=== PATIENT | male | born 1955 | race Caucasian/White ===

== ENCOUNTER 2018-07-18 16:25 | Inpatient (IN) | payer MEDICARE, OTHER ==
[~2018-07-18] VITALS: Ht 170.2 cm; Wt 54.6 kg
[2018-07-18 17:00] LABS: BASOPHILS % (AUTO) 0 % (0-1); EOSINOPHILS # (AUTO) 0.3 X10'3 (0-0.9); EOSINOPHILS % (AUTO) 1.3 % (0-6); HEMATOCRIT 35.8 % (42.0-52.0); HEMOGLOBIN 12.1 g/dl (14.0-17.9); LYMPHOCYTES # (AUTO) 0.7 X10'3 (1.1-4.8); LYMPHOCYTES % (AUTO) 3.1 % (21-51); MEAN CORPUSCULAR HEMOGLOBIN 31.7 PG (27.0-31.0); MEAN CORPUSCULAR HGB CONC 33.8 % (33.0-36.5); MEAN CORPUSCULAR VOLUME 93.7 FL (78-98); MEAN PLATELET VOLUME 7.8 FL (7.4-10.4); MONOCYTES # (AUTO) 1.7 X10'3 (0-0.9); MONOCYTES % (AUTO) 7.6 % (2-12); NEUTROPHILS # (AUTO) 20.1 X10'3 (1.8-7.7); PLATELET COUNT 216 X10'3 (140-440); RED BLOOD COUNT 3.82 X10'6 (4.70-6.10); RED CELL DISTRIBUTION WIDTH 15.3 % (11.5-14.5); WHITE BLOOD COUNT 22.9 X10'3 (4.5-11.0)
[2018-07-18 17:10] LABS: INR 1.3 INR; PARTIAL THROMBOPLASTIN TIME 32 SECONDS (22-32); PROTHROMBIN TIME 13.3 SECONDS (9.0-12.0)
[2018-07-18 18:57] LABS: CLARITY,URINE CLEAR (Clear); COLOR,URINE YELLOW (Yellow); GLUCOSE, URINE NEGATIVE (Neg); KETONES,URINE NEGATIVE (Neg); LEUKOCYTE ESTERASE ,URINE NEGATIVE (Neg); NITRITES, URINE NEGATIVE (Neg); OCCULT BLOOD,URINE NEGATIVE (Neg); PROTEIN,URINE NEGATIVE (Neg); UROBILINOGEN,URINE 0.2 E.U/dL (0.2-1.0)
[2018-07-18 19:02] LABS: UA COLLECTION TYPE CLN CATCH MIDSTREAM
[2018-07-18] MEDS ORDERED: normal saline 1000ML IV soln IVB STA (19:59)
[2018-07-18] MEDS ORDERED: vancomycin/NS 1 GM ADD-VANTAGE 250 ML IV ONE (20:00)
[2018-07-18 20:15] LABS: ALANINE AMINOTRANSFERASE 39 U/L (12-78); ALBUMIN 3.3 G/DL (3.4-5.0); ALBUMIN/GLOBULIN RATIO 0.8 (1.1-1.5); ALKALINE PHOSPHATASE 24 IU/L (46-116); ANION GAP 10 (8-16); ASPARTATE AMINO TRANSFERASE 28 U/L (10-37); BILIRUBIN,TOTAL 0.5 MG/DL (0.1-1.0); BLOOD UREA NITROGEN 22 MG/DL (7-18); BUN/CREATININE RATIO 18.5 (5.4-32.0); CALCIUM 9.3 MG/DL (8.5-10.1); CHLORIDE 96 MMOL/L (99-107); CREATININE 1.19 MG/DL (0.60-1.10); GLUCOSE 115 MG/DL (70-104); POTASSIUM 3.5 MMOL/L (3.5-5.1); SODIUM 132 MMOL/L (135-145); TOTAL CARBON DIOXIDE 26.5 MMOL/L (24-32); TOTAL PROTEIN 7.4 G/DL (6.4-8.2); eGFR 62 ML/MIN
[2018-07-18] MEDS ORDERED: HYDROmorphone 1 mg/ml syringe IV ONE (20:15)
[2018-07-18] MEDS ORDERED: magnesium hydroxide 30ml (MOM) UD suspension PO PRN (20:45)
[2018-07-18] MEDS ORDERED: mag hydrox/Alum hydrox/simeth 30ml oral suspension PO PRN (20:45)
[2018-07-18] MEDS ORDERED: ondansetron/PF 4mg/2ml inj IV PRN (20:45)
[2018-07-18] MEDS ORDERED: acetaminophen 325mg tablet PO PRN (20:45)
[2018-07-18] MEDS ORDERED: HYDROmorphone 1 mg/ml syringe IV PRN ×2 (20:45→20:55)
[2018-07-18] MEDS ORDERED: TIZA2CAP PO (20:51)
[2018-07-18] MEDS ORDERED: VAL5T PO (20:51)
[2018-07-18] MEDS ORDERED: HYDR-565 PO (20:52)
[2018-07-18] MEDS ORDERED: QUET-1 PO (20:52)
[2018-07-18] MEDS ORDERED: TRAZ-218 PO (20:52)
[2018-07-18] MEDS: normal saline 1000ml 1,000 ML IV SCH (21:27)
[2018-07-18] MEDS: quetiapine 100mg tablet PO SCH (22:40)
[2018-07-18] MEDS: traZODone 50mg tablet PO SCH (22:40)
[2018-07-19 06:00] VITALS: BP 127/70
[2018-07-19 06:22] LABS: ALANINE AMINOTRANSFERASE 35 U/L (12-78); ALBUMIN 2.4 G/DL (3.4-5.0); ALBUMIN/GLOBULIN RATIO 0.7 (1.1-1.5); ALKALINE PHOSPHATASE 17 IU/L (46-116); ANION GAP 8 (8-16); ASPARTATE AMINO TRANSFERASE 20 U/L (10-37); BILIRUBIN,TOTAL 0.3 MG/DL (0.1-1.0); BLOOD UREA NITROGEN 17 MG/DL (7-18); BUN/CREATININE RATIO 16.7 (5.4-32.0); CALCIUM 7.9 MG/DL (8.5-10.1); CHLORIDE 102 MMOL/L (99-107); CREATININE 1.02 MG/DL (0.60-1.10); GLUCOSE 124 MG/DL (70-104); POTASSIUM 3.5 MMOL/L (3.5-5.1); SODIUM 134 MMOL/L (135-145); TOTAL CARBON DIOXIDE 24.5 MMOL/L (24-32); TOTAL PROTEIN 5.9 G/DL (6.4-8.2); eGFR 74 ML/MIN
[2018-07-19] MEDS: normal saline 1000ml 1,000 ML IV SCH ×2 (06:45→19:43)
[2018-07-19 06:54] LABS: BASOPHILS # (AUTO) 0.1 X10'3 (0-0.2); BASOPHILS % (AUTO) 0.5 % (0-1); EOSINOPHILS % (AUTO) 0 % (0-6); HEMATOCRIT 32.2 % (42.0-52.0); HEMOGLOBIN 10.8 g/dl (14.0-17.9); LYMPHOCYTES # (AUTO) 0.8 X10'3 (1.1-4.8); LYMPHOCYTES % (AUTO) 4.4 % (21-51); MEAN CORPUSCULAR HEMOGLOBIN 31.2 PG (27.0-31.0); MEAN CORPUSCULAR HGB CONC 33.4 % (33.0-36.5); MEAN CORPUSCULAR VOLUME 93.2 FL (78-98); MEAN PLATELET VOLUME 8.9 FL (7.4-10.4); MONOCYTES # (AUTO) 1.4 X10'3 (0-0.9); MONOCYTES % (AUTO) 7.9 % (2-12); NEUTROPHILS # (AUTO) 15.5 X10'3 (1.8-7.7); NEUTROPHILS % (AUTO) 87.2 % (42-75); PLATELET COUNT 155 X10'3 (140-440); RED BLOOD COUNT 3.45 X10'6 (4.70-6.10); RED CELL DISTRIBUTION WIDTH 15.1 % (11.5-14.5); WHITE BLOOD COUNT 17.8 X10'3 (4.5-11.0)
[2018-07-19] MEDS ORDERED: pneumococcal 23-VAL P-sac vacc 25 mcg/0.5ml vial IMVAC ONE (07:00)
[2018-07-19] MEDS: HYDROcodone/acetaminophen 10/325mg tab PO PRN ×3 (07:43→19:43)
[2018-07-19] MEDS: heparin, porcine 5000 units/ml vial SQ SCH ×2 (07:44→19:43)
[2018-07-19] MEDS: diazepam 5mg tablet PO SCH ×2 (09:57→19:43)
[2018-07-19 10:00] VITALS: BP 116/58
[2018-07-19] MEDS: piperacillin/tazo 3.375gm/50ml 50 ML IV SCH ×2 (14:00→19:43)
[2018-07-19] MEDS: VANCOMYCIN 750MG IV in NS 250 ML IV SCH (14:03)
[2018-07-19 16:35] LABS: URINE AMPHETAMINE SCREEN POSITIVE (Neg); URINE BARBITUATE SCREEN NEGATIVE (Neg); URINE BENZODIAZEPINES SCREEN POSITIVE (Neg); URINE CANNABINOID SCREEN NEGATIVE (Neg); URINE COCAINE SCREEN NEGATIVE (Neg); URINE METHADONE SCREEN NEGATIVE (Neg); URINE OPIATE SCREEN POSITIVE (Neg); URINE PHENCYCLIDINE SCREEN NEGATIVE (Neg)
[2018-07-19 18:00] VITALS: BP 118/63
[2018-07-19] MEDS: traZODone 50mg tablet PO SCH (19:43)
[2018-07-19] MEDS: quetiapine 100mg tablet PO SCH (19:43)
[2018-07-19] MEDS ORDERED: vancomycin/NS 1 GM ADD-VANTAGE 250 ML IV SCH (20:00)
[2018-07-19 22:00] VITALS: BP 133/78
[2018-07-20] MEDS: piperacillin/tazo 3.375gm/50ml 50 ML IV SCH ×4 (01:48→20:14)
[2018-07-20] MEDS: VANCOMYCIN 750MG IV in NS 250 ML IV SCH ×2 (01:48→16:20)
[2018-07-20] MEDS: normal saline 1000ml 1,000 ML IV SCH ×3 (02:45→22:45)
[2018-07-20] MEDS: HYDROcodone/acetaminophen 10/325mg tab PO PRN ×2 (04:42→15:37)
[2018-07-20 05:00] VITALS: BP 137/82
[2018-07-20 05:26] LABS: BASOPHILS % (AUTO) 0.1 % (0-1); EOSINOPHILS # (AUTO) 0.3 X10'3 (0-0.9); EOSINOPHILS % (AUTO) 2.1 % (0-6); HEMATOCRIT 30.6 % (42.0-52.0); HEMOGLOBIN 10.4 g/dl (14.0-17.9); LYMPHOCYTES # (AUTO) 1.1 X10'3 (1.1-4.8); LYMPHOCYTES % (AUTO) 9.4 % (21-51); MEAN CORPUSCULAR HEMOGLOBIN 31.7 PG (27.0-31.0); MEAN CORPUSCULAR VOLUME 93.1 FL (78-98); MEAN PLATELET VOLUME 8.4 FL (7.4-10.4); NEUTROPHILS # (AUTO) 9.8 X10'3 (1.8-7.7); NEUTROPHILS % (AUTO) 80.4 % (42-75); PLATELET COUNT 158 X10'3 (140-440); RED BLOOD COUNT 3.29 X10'6 (4.70-6.10); RED CELL DISTRIBUTION WIDTH 14.7 % (11.5-14.5); WHITE BLOOD COUNT 12.2 X10'3 (4.5-11.0)
[2018-07-20 05:38] LABS: ALANINE AMINOTRANSFERASE 25 U/L (12-78); ALBUMIN 2.1 G/DL (3.4-5.0); ALBUMIN/GLOBULIN RATIO 0.6 (1.1-1.5); ALKALINE PHOSPHATASE 10 IU/L (46-116); ANION GAP 8 (8-16); ASPARTATE AMINO TRANSFERASE 23 U/L (10-37); BILIRUBIN,TOTAL 0.3 MG/DL (0.1-1.0); BLOOD UREA NITROGEN 16 MG/DL (7-18); CHLORIDE 104 MMOL/L (99-107); CREATININE 1.07 MG/DL (0.60-1.10); GLUCOSE 90 MG/DL (70-104); POTASSIUM 3.7 MMOL/L (3.5-5.1); SODIUM 136 MMOL/L (135-145); TOTAL CARBON DIOXIDE 23.9 MMOL/L (24-32); TOTAL PROTEIN 5.5 G/DL (6.4-8.2); eGFR 70 ML/MIN
[2018-07-20] MEDS: diazepam 5mg tablet PO SCH ×2 (08:08→20:15)
[2018-07-20] MEDS: heparin, porcine 5000 units/ml vial SQ SCH ×2 (08:08→20:15)
[2018-07-20 10:00] VITALS: BP 148/84
[2018-07-20 18:00] VITALS: BP 146/86
[2018-07-20] MEDS: quetiapine 100mg tablet PO SCH (20:15)
[2018-07-20] MEDS: traZODone 50mg tablet PO SCH (20:15)
[2018-07-20 22:00] VITALS: BP 124/58
[2018-07-21] MEDS ORDERED: VANCOMYCIN LEVEL IV ONE (01:30)
[2018-07-21 02:13] LABS: ALANINE AMINOTRANSFERASE 33 U/L (12-78); ALBUMIN/GLOBULIN RATIO 0.6 (1.1-1.5); ALKALINE PHOSPHATASE 18 IU/L (46-116); ANION GAP 4 (8-16); ASPARTATE AMINO TRANSFERASE 21 U/L (10-37); BASOPHILS % (AUTO) 0 % (0-1); BILIRUBIN,TOTAL 0.3 MG/DL (0.1-1.0); BLOOD UREA NITROGEN 14 MG/DL (7-18); CALCIUM 8.2 MG/DL (8.5-10.1); CHLORIDE 104 MMOL/L (99-107); CREATININE 1.08 MG/DL (0.60-1.10); EOSINOPHILS # (AUTO) 0.1 X10'3 (0-0.9); GLUCOSE 102 MG/DL (70-104); HEMATOCRIT 28.9 % (42.0-52.0); HEMOGLOBIN 9.5 g/dl (14.0-17.9); LYMPHOCYTES # (AUTO) 0.8 X10'3 (1.1-4.8); LYMPHOCYTES % (AUTO) 11.1 % (21-51); MEAN CORPUSCULAR HEMOGLOBIN 30.8 PG (27.0-31.0); MEAN CORPUSCULAR HGB CONC 32.9 % (33.0-36.5); MEAN CORPUSCULAR VOLUME 93.6 FL (78-98); MEAN PLATELET VOLUME 8.3 FL (7.4-10.4); MONOCYTES # (AUTO) 0.7 X10'3 (0-0.9); MONOCYTES % (AUTO) 9.6 % (2-12); NEUTROPHILS # (AUTO) 5.9 X10'3 (1.8-7.7); NEUTROPHILS % (AUTO) 78.3 % (42-75); PLATELET COUNT 176 X10'3 (140-440); POTASSIUM 3.4 MMOL/L (3.5-5.1); RED BLOOD COUNT 3.08 X10'6 (4.70-6.10); RED CELL DISTRIBUTION WIDTH 15.4 % (11.5-14.5); SODIUM 137 MMOL/L (135-145); TOTAL CARBON DIOXIDE 28.9 MMOL/L (24-32); TOTAL PROTEIN 5.5 G/DL (6.4-8.2); VANCOMYCIN,TROUGH 8.3 UG/ML (6.0-14.0); WHITE BLOOD COUNT 7.6 X10'3 (4.5-11.0); eGFR 69 ML/MIN
[2018-07-21] MEDS: piperacillin/tazo 3.375gm/50ml 50 ML IV SCH ×4 (02:17→19:52)
[2018-07-21] MEDS: VANCOMYCIN 750MG IV in NS 250 ML IV SCH (03:05)
[2018-07-21] MEDS: HYDROcodone/acetaminophen 10/325mg tab PO PRN ×3 (05:11→17:48)
[2018-07-21 06:00] VITALS: BP 132/80
[2018-07-21] MEDS: diazepam 5mg tablet PO SCH ×2 (08:33→19:53)
[2018-07-21] MEDS: heparin, porcine 5000 units/ml vial SQ SCH ×2 (08:33→19:53)
[2018-07-21] MEDS: normal saline 1000ml 1,000 ML IV SCH ×2 (08:45→19:52)
[2018-07-21 10:00] VITALS: BP 163/83
[2018-07-21] MEDS ORDERED: pneumococcal 23-VAL P-sac vacc 25 mcg/0.5ml vial IMVAC ONE (10:00)
[2018-07-21] MEDS ORDERED: magnesium Cl slow-release 64mg tablet PO PRN (11:55)
[2018-07-21] MEDS ORDERED: potassium Cl 40MEQ/NS 500ml 500 ML IV PRN ×2 (11:55)
[2018-07-21] MEDS ORDERED: potassium Cl 20 mEq SR tablet PO PRN (11:55)
[2018-07-21 12:31] LABS: MAGNESIUM 1.8 MG/DL (1.5-2.4); POTASSIUM 3.5 MMOL/L (3.5-5.1)
[2018-07-21] MEDS: potassium Cl 20 mEq SR tablet PO PRN (13:18)
[2018-07-21] MEDS: vancomycin/NS 1 GM ADD-VANTAGE 250 ML IV SCH (14:43)
[2018-07-21 18:00] VITALS: BP 166/102
[2018-07-21] MEDS: quetiapine 100mg tablet PO SCH (19:53)
[2018-07-21] MEDS: traZODone 50mg tablet PO SCH (19:53)
[2018-07-21 22:00] VITALS: BP 161/97
[2018-07-22] MEDS: piperacillin/tazo 3.375gm/50ml 50 ML IV SCH ×2 (02:37→07:36)
[2018-07-22] MEDS: vancomycin/NS 1 GM ADD-VANTAGE 250 ML IV SCH (02:37)
[2018-07-22] MEDS: HYDROcodone/acetaminophen 10/325mg tab PO PRN ×2 (02:40→07:55)
[2018-07-22] MEDS: normal saline 1000ml 1,000 ML IV SCH ×2 (04:45→10:09)
[2018-07-22 05:00] VITALS: BP 154/73
[2018-07-22 05:58] LABS: BASOPHILS % (AUTO) 0.3 % (0-1); EOSINOPHILS # (AUTO) 0.3 X10'3 (0-0.9); EOSINOPHILS % (AUTO) 3.7 % (0-6); HEMATOCRIT 32.1 % (42.0-52.0); HEMOGLOBIN 10.9 g/dl (14.0-17.9); LYMPHOCYTES # (AUTO) 1.1 X10'3 (1.1-4.8); LYMPHOCYTES % (AUTO) 16.3 % (21-51); MEAN CORPUSCULAR HEMOGLOBIN 31.4 PG (27.0-31.0); MEAN CORPUSCULAR HGB CONC 33.8 % (33.0-36.5); MEAN CORPUSCULAR VOLUME 92.8 FL (78-98); MEAN PLATELET VOLUME 7.5 FL (7.4-10.4); MONOCYTES # (AUTO) 0.7 X10'3 (0-0.9); MONOCYTES % (AUTO) 10.3 % (2-12); NEUTROPHILS # (AUTO) 4.7 X10'3 (1.8-7.7); NEUTROPHILS % (AUTO) 69.4 % (42-75); PLATELET COUNT 216 X10'3 (140-440); RED BLOOD COUNT 3.46 X10'6 (4.70-6.10); RED CELL DISTRIBUTION WIDTH 14.7 % (11.5-14.5); WHITE BLOOD COUNT 6.8 X10'3 (4.5-11.0)
[2018-07-22 06:23] LABS: ALANINE AMINOTRANSFERASE 36 U/L (12-78); ALBUMIN 2.1 G/DL (3.4-5.0); ALBUMIN/GLOBULIN RATIO 0.6 (1.1-1.5); ALKALINE PHOSPHATASE 16 IU/L (46-116); ANION GAP 7 (8-16); ASPARTATE AMINO TRANSFERASE 24 U/L (10-37); BILIRUBIN,TOTAL 0.3 MG/DL (0.1-1.0); BLOOD UREA NITROGEN 8 MG/DL (7-18); BUN/CREATININE RATIO 8.6 (5.4-32.0); CHLORIDE 104 MMOL/L (99-107); CREATININE 0.93 MG/DL (0.60-1.10); GLUCOSE 127 MG/DL (70-104); MAGNESIUM 1.7 MG/DL (1.5-2.4); POTASSIUM 3.3 MMOL/L (3.5-5.1); SODIUM 136 MMOL/L (135-145); TOTAL PROTEIN 5.8 G/DL (6.4-8.2); eGFR 82 ML/MIN
[2018-07-22] MEDS: diazepam 5mg tablet PO SCH (07:36)
[2018-07-22] MEDS: heparin, porcine 5000 units/ml vial SQ SCH (07:37)
[2018-07-22] MEDS: potassium Cl 20 mEq SR tablet PO PRN ×2 (07:56→11:45)
[2018-07-22 10:00] VITALS: BP 176/113
[2018-07-22] MEDS ORDERED: amLODIPine 5mg tablet PO SCH (11:00)
[2018-07-23] MEDS ORDERED: VANCOMYCIN LEVEL IV ONE (01:30)
== END 2018-07-22 12:30 | disposition left against medical advice (07) | DRG 872 ==
LOC: ER 16:25 → ED HOLD 20:45 → ORTHO 4S 21:40
PROVIDERS: ADMIT Internal Medicine; ATTEND Family Medicine
DX: A41.9 Sepsis, unspecified organism (principal); L03.114 Cellulitis of left upper limb; E44.0 Moderate protein-calorie malnutrition; Z68.1 Body mass index [BMI] 19.9 or less, adult; F15.10 Other stimulant abuse, uncomplicated; Z53.21 Procedure and treatment not carried out due to patient leaving prior to being seen by health care provider; G62.9 Polyneuropathy, unspecified; I10 Essential (primary) hypertension; M48.00 Spinal stenosis, site unspecified; F17.200 Nicotine dependence, unspecified, uncomplicated; G89.29 Other chronic pain; M54.9 Dorsalgia, unspecified; Z79.899 Other long term (current) drug therapy; S50.02XD Contusion of left elbow, subsequent encounter; Z71.6 Tobacco abuse counseling
CPT/HCPCS: 36415; 80053; 80202; 80305; 81003; 83605; 83735; 84132; 84145; 85025; 85610; 85730; 87040; 87070; 90732; 93005; 96365; 96375; 99285; J1170; J1644; J2543; J3370; J7030

== ENCOUNTER 2019-01-27 13:10 | Emergency (ER) | payer MEDICARE ==
[~2019-01-27 13:10] MED LIST: HYDR-4353 PO; QUET-1 PO; TIZA2CAP PO; TRAZ-218 PO; VAL5T PO
== END 2019-01-27 14:47 | disposition left against medical advice (07) ==
LOC: ER 13:10
DX: R05 Cough (principal); Z53.21 Procedure and treatment not carried out due to patient leaving prior to being seen by health care provider